=== PATIENT | female | born 1950 | race Two or more races ===

== ENCOUNTER 2017-08-18 21:17 | Emergency (ER) | payer OTHER ==
[~2017-08-18] VITALS: Ht 157.5 cm; Wt 73.5 kg
[2017-08-18] MEDS ORDERED: SITA1TAB6 PO (21:39)
[2017-08-18] MEDS ORDERED: SIMV40TA5 PO (21:39)
[2017-08-18] MEDS ORDERED: ASPI-605 PO (21:39)
[2017-08-18] MEDS ORDERED: ERGO500040 PO (21:39)
[2017-08-18] MEDS ORDERED: OMEP20CA10 PO (21:39)
[2017-08-18] MEDS ORDERED: LORA10TA7 PO (21:39)
[2017-08-18] MEDS ORDERED: AMLO10TA2 PO (21:39)
[2017-08-18] MEDS ORDERED: LOSA1TAB42 PO (21:39)
[2017-08-18] MEDS ORDERED: LIPA1CAP15 PO (21:39)
--- NOTE | 2017-08-18 21:55 | NUR ---
Dr. Cox at bedside for MSE.
[2017-08-18] MEDS ORDERED: MORPHINE SULFATE 2 MG/1 ML DISP.SYRIN IV ONE (22:15)
[2017-08-18] MEDS ORDERED: ONDANSETRON ODT 4 MG TAB.RAPDIS SL ONE (22:15)
[2017-08-18] MEDS ORDERED: ONDANSETRON ODT 4 MG TAB.RAPDIS ONE (22:24)
[2017-08-18] MEDS ORDERED: MORPHINE SULFATE 4 MG/1 ML DISP.SYRIN ONE (22:25)
[2017-08-18 22:46] LABS: BASOPHILS % (AUTO) 0.4 % (0.0-2.0); EOSINOPHILS # (AUTO) 0.2 K/uL (0.0-0.7); EOSINOPHILS % (AUTO) 1.9 % (0.0-7.0); HEMATOCRIT 31.4 % (31.2-41.9); HEMOGLOBIN 11.1 g/dL (10.9-14.3); LYMPHOCYTES # (AUTO) 2.8 K/uL (20.0-40.0); LYMPHOCYTES % (AUTO) 34.2 % (20.5-51.5); MEAN CORPUSCULAR HEMOGLOBIN 32.6 uug (24.7-32.8); MEAN CORPUSCULAR HGB CONC 35 g/dL (32.3-35.6); MEAN CORPUSCULAR VOLUME 92.2 fL (75.5-95.3); MONOCYTES # (AUTO) 0.6 K/uL (2.0-10.0); MONOCYTES % (AUTO) 7.6 % (0.0-11.0); NEUTROPHILS # (AUTO) 4.7 K/uL (1.8-8.9); NEUTROPHILS % (AUTO) 55.9 % (38.5-71.5); PLATELET COUNT (AUTO) 224 K/uL (179-408); RED BLOOD CELL COUNT(AUTO) 3.41 MIL/uL (3.63-4.92); WHITE BLOOD COUNT (AUTO) 8.3 K/uL (3.8-11.8)
[2017-08-18 22:55] LABS: CREATININE 0.9 mg/dL (0.6-1.3)
[2017-08-18 23:00] LABS: BILIRUBIN,TOTAL 0.2 mg/dL (0.2-1.0); TOTAL PROTEIN, SERUM 7.5 g/dL (6.4-8.2)
[2017-08-18] MEDS ORDERED: SWABABLE VALVE TRANSFER SET EA MC ONE (23:10)
[2017-08-18] MEDS ORDERED: NORMAL SALINE FLUSH 10 ML DISP.SYRIN ONE (23:10)
[2017-08-18] MEDS ORDERED: IV NORMAL SALINE 100 ML ONE (23:11)
[2017-08-18] MEDS ORDERED: IOHEXOL 300MG/ML 100 ML INFUS..BTL ONE (23:11)
--- NOTE | 2017-08-18 23:39 | NUR ---
Pt out of ER for CT.
--- NOTE | 2017-08-18 23:59 | NUR ---
Pt back to ER from CT.
--- NOTE | 2017-08-19 00:50 | NUR ---
Strep sample collected from pt, granddaughter, Mindy Salguero, left her phone number for results.
--- NOTE | 2017-08-19 00:54 | NUR ---
Patient discharged to home in stable conditon. Written and verbal after care instructions given. Patient verbalizes understanding of instructions. Patient out of ER via wheelchair, accompanied patient to vehicle to assist on transfer, VSS, no acute signs of distress, all belongings taken, IV site discontinued.
[2017-08-19 00:58] VITALS: BP 136/71
== END 2017-08-19 00:58 | disposition home or self-care (01) ==
LOC: ER 21:20
DX: G89.29 Other chronic pain (principal); M54.31 Sciatica, right side; J02.8 Acute pharyngitis due to other specified organisms; B97.89 Other viral agents as the cause of diseases classified elsewhere; I10 Essential (primary) hypertension; E78.5 Hyperlipidemia, unspecified; K21.9 Gastro-esophageal reflux disease without esophagitis; Z90.49 Acquired absence of other specified parts of digestive tract; Z79.82 Long term (current) use of aspirin; Z79.899 Other long term (current) drug therapy
CPT/HCPCS: 36415; 85025; 86403; 87070; A4663; J2270; J3490; Q0162; Q9967

== ENCOUNTER 2017-10-16 13:13 | Emergency (ER) | payer OTHER ==
[~2017-10-16] VITALS: Ht 157.5 cm; Wt 72.6 kg
[~2017-10-16 13:13] MED LIST: AMLO10TA2 PO; ASPI-605 PO; ERGO500040 PO; LIPA1CAP15 PO; LORA10TA7 PO; LOSA1TAB42 PO; OMEP20CA10 PO; SIMV40TA5 PO; SITA1TAB6 PO
[2017-10-16] MEDS ORDERED: ACETAMINOPHEN ES 500 MG TABLET PO ONE (13:30)
[2017-10-16] MEDS ORDERED: IBUPROFEN 600 MG TABLET PO ONE (13:30)
[2017-10-16 13:53] LABS: BASOPHILS # (AUTO) 0.1 K/uL (0.0-8.0); EOSINOPHILS # (AUTO) 0.2 K/uL (0.0-0.7); EOSINOPHILS % (AUTO) 3.4 % (0.0-7.0); HEMATOCRIT 33.2 % (31.2-41.9); HEMOGLOBIN 11.7 g/dL (10.9-14.3); LYMPHOCYTES # (AUTO) 2.1 K/uL (20.0-40.0); LYMPHOCYTES % (AUTO) 32.5 % (20.5-51.5); MEAN CORPUSCULAR HEMOGLOBIN 32.8 uug (24.7-32.8); MEAN CORPUSCULAR HGB CONC 35 g/dL (32.3-35.6); MEAN CORPUSCULAR VOLUME 93.3 fL (75.5-95.3); MONOCYTES # (AUTO) 0.5 K/uL (2.0-10.0); NEUTROPHILS # (AUTO) 3.7 K/uL (1.8-8.9); NEUTROPHILS % (AUTO) 56.1 % (38.5-71.5); PLATELET COUNT (AUTO) 251 K/uL (179-408); RED BLOOD CELL COUNT(AUTO) 3.56 MIL/uL (3.63-4.92); WHITE BLOOD COUNT (AUTO) 6.6 K/uL (3.8-11.8)
--- NOTE | 2017-10-16 13:55 | NUR ---
PT IS IN ROOM #1B. DR GLEASON EVALUATED THE PT.
[2017-10-16] MEDS ORDERED: ACETAMINOPHEN ES 500 MG TABLET ONE (14:01)
[2017-10-16] MEDS ORDERED: IBUPROFEN 600 MG TABLET ONE (14:01)
[2017-10-16 14:08] LABS: BILIRUBIN,DIRECT 0.1 mg/dL (0.0-0.2); BILIRUBIN,TOTAL 0.2 mg/dL (0.2-1.0); TOTAL PROTEIN, SERUM 7.4 g/dL (6.4-8.2)
--- NOTE | 2017-10-16 14:53 | NUR ---
PT WAS D/C TO HOME. D/C INSTRUCTIONS GIVEN TO THE PT.
[2017-10-16 14:54] VITALS: BP 138/72
== END 2017-10-16 14:55 | disposition home or self-care (01) ==
LOC: ER 13:13
DX: M93.90 Osteochondropathy, unspecified of unspecified site (principal); G89.29 Other chronic pain; R07.89 Other chest pain; I10 Essential (primary) hypertension; R79.89 Other specified abnormal findings of blood chemistry; I25.2 Old myocardial infarction; K21.9 Gastro-esophageal reflux disease without esophagitis; E11.9 Type 2 diabetes mellitus without complications; Z90.49 Acquired absence of other specified parts of digestive tract
CPT/HCPCS: 36415; 70030-TC; 71045; 85025; 85730; 93005; A4663; A9150

== ENCOUNTER 2018-08-04 23:02 | Emergency (ER) | payer OTHER ==
[~2018-08-04] VITALS: Ht 149.9 cm; Wt 80.7 kg
[~2018-08-04 23:02] MED LIST changes: -AMLO10TA2 PO; +AMLO10TA7 PO
[2018-08-04] MEDS ORDERED: FLUT16SP2 NS (23:18)
[2018-08-04] MEDS ORDERED: BIOT50002 SL (23:18)
[2018-08-04] MEDS ORDERED: TRAM50TA2 PO (23:18)
[2018-08-04] MEDS ORDERED: ALLO100T56 PO (23:18)
[2018-08-04] MEDS ORDERED: INSU100V7 SQ (23:18)
[2018-08-04] MEDS ORDERED: CEFD300C3 PO (23:18)
--- NOTE | 2018-08-04 23:25 | NUR ---
Dr. Valentine at bedside for MSE.
[2018-08-04] MEDS ORDERED: GUAIFENESIN/CODEINE 5 ML LIQUID UDC PO ONE (23:30)
[2018-08-04] MEDS ORDERED: GUAIFENESIN/CODEINE 5 ML LIQUID UDC ONE (23:38)
--- NOTE | 2018-08-04 23:39 | NUR ---
Xray at bedside.
[2018-08-04 23:44] LABS: BASOPHILS % (AUTO) 0.6 % (0.0-2.0); EOSINOPHILS # (AUTO) 0.4 K/uL (0.0-0.7); EOSINOPHILS % (AUTO) 5.7 % (0.0-7.0); HEMATOCRIT 33.5 % (31.2-41.9); HEMOGLOBIN 11.3 g/dL (10.9-14.3); LYMPHOCYTES # (AUTO) 3.4 K/uL (20.0-40.0); LYMPHOCYTES % (AUTO) 45.7 % (20.5-51.5); MEAN CORPUSCULAR HEMOGLOBIN 31.5 uug (24.7-32.8); MEAN CORPUSCULAR HGB CONC 34 g/dL (32.3-35.6); MEAN CORPUSCULAR VOLUME 93.3 fL (75.5-95.3); MONOCYTES # (AUTO) 0.5 K/uL (2.0-10.0); MONOCYTES % (AUTO) 7.2 % (0.0-11.0); NEUTROPHILS # (AUTO) 3.1 K/uL (1.8-8.9); NEUTROPHILS % (AUTO) 40.8 % (38.5-71.5); PLATELET COUNT (AUTO) 289 K/uL (179-408); RED BLOOD CELL COUNT(AUTO) 3.59 MIL/uL (3.63-4.92); WHITE BLOOD COUNT (AUTO) 7.5 K/uL (3.8-11.8)
[2018-08-04 23:45] LABS: CREATININE 1.1 mg/dL (0.6-1.3); POTASSIUM 4.6 mmol/L (3.5-5.1)
[2018-08-04 23:58] LABS: BILIRUBIN,DIRECT 0.1 mg/dL (0.0-0.2); BILIRUBIN,TOTAL 0.3 mg/dL (0.2-1.0); TOTAL PROTEIN, SERUM 7.9 g/dL (6.4-8.2)
[2018-08-05 00:35] VITALS: BP 133/104
== END 2018-08-05 00:36 | disposition home or self-care (01) ==
LOC: ER 23:05
DX: R05 Cough (principal); I10 Essential (primary) hypertension; I25.2 Old myocardial infarction; E11.9 Type 2 diabetes mellitus without complications; K21.9 Gastro-esophageal reflux disease without esophagitis; F17.290 Nicotine dependence, other tobacco product, uncomplicated; Z71.6 Tobacco abuse counseling; Z79.51 Long term (current) use of inhaled steroids; Z79.899 Other long term (current) drug therapy; Z79.4 Long term (current) use of insulin; Z90.49 Acquired absence of other specified parts of digestive tract
CPT/HCPCS: 36415; 70030-TC; 71045; 85025; 93005; A4663

== ENCOUNTER 2018-09-02 13:09 | Emergency (ER) | payer OTHER ==
[~2018-09-02] VITALS: Ht 152.4 cm; Wt 81.6 kg
[~2018-09-02 13:09] MED LIST changes: +ALLO100T56 PO; +BIOT50002 SL; +CEFD300C3 PO; +FLUT16SP2 NS; +INSU100V7 SQ; -LIPA1CAP15 PO; -LORA10TA7 PO; -SIMV40TA5 PO; -SITA1TAB6 PO; +TRAM50TA2 PO
--- NOTE | 2018-09-02 13:22 | NUR ---
CARROL OHARA AT BEDSIDE FOR MSE.
--- NOTE | 2018-09-02 14:07 | NUR ---
CARROL OHARA AT BEDSIDE FOR PT UPDATE.
--- NOTE | 2018-09-02 14:11 | NUR ---
Patient discharged to home in stable conditon. Written and verbal after care instructions given. Patient verbalizes understanding of instructions. ALL BELONGINGS W/ PT. PT SELF-AMBULATED W/O DIFFICULTY.
[2018-09-02 14:12] VITALS: BP 146/77
== END 2018-09-02 14:12 | disposition home or self-care (01) ==
LOC: ER 13:09
DX: M75.22 Bicipital tendinitis, left shoulder (principal); I10 Essential (primary) hypertension; I25.2 Old myocardial infarction; K21.9 Gastro-esophageal reflux disease without esophagitis; E11.9 Type 2 diabetes mellitus without complications; F17.200 Nicotine dependence, unspecified, uncomplicated; Z90.49 Acquired absence of other specified parts of digestive tract; Z79.4 Long term (current) use of insulin; Z79.82 Long term (current) use of aspirin; Z79.899 Other long term (current) drug therapy
CPT/HCPCS: 73060; A4663